=== PATIENT | female | born 1945 ===

== ENCOUNTER → 2021-02-18 13:09 | Outpatient (CLI) | payer OTHER ==
[~2021-02-18 13:09] MED LIST: COZAAR100 MG; NEXIUM10 MG; VERAPAMIL ER180 MG; VYTORIN 10-20 M1 TAB
== END | disposition home or self-care (01) ==
LOC: NUCLEAR 02-15 14:30
DX: M81.0 Age-related osteoporosis without current pathological fracture (principal)

== ENCOUNTER 2021-03-15 08:00 | Outpatient (CLI) | payer OTHER | END 2021-03-15 08:30 | disposition home or self-care (01) | LOC: PPH VACUNA 08:00 | DX: Z23 Encounter for immunization (principal) ==

== ENCOUNTER 2021-09-19 07:49 | Outpatient (CLI) | payer OTHER | END 2021-09-19 07:50 | disposition home or self-care (01) | LOC: MAMO-SONO 07:49 | DX: Z12.31 Encounter for screening mammogram for malignant neoplasm of breast (principal) ==

== ENCOUNTER 2021-10-10 07:25 | Outpatient (CLI) | payer OTHER | END 2021-10-10 07:31 | disposition home or self-care (01) | LOC: SONOGRAMA 07:25 | PROVIDERS: ATTEND Internal Medicine | DX: N60.01 Solitary cyst of right breast (principal); N60.02 Solitary cyst of left breast ==

== ENCOUNTER 2022-02-03 12:59 | Outpatient (CLI) | payer OTHER | END 2022-02-03 13:03 | disposition home or self-care (01) | LOC: SONOGRAMA 12:59 | PROVIDERS: ATTEND Obstetrics & Gynecology Gynecology | DX: N95.0 Postmenopausal bleeding (principal) ==

== ENCOUNTER 2022-02-24 10:14 | Outpatient (CLI) | payer OTHER | END 2022-02-24 10:28 | disposition home or self-care (01) | LOC: SONOGRAMA 10:14 | PROVIDERS: ATTEND Obstetrics & Gynecology Gynecology | DX: N60.11 Diffuse cystic mastopathy of right breast (principal); N60.12 Diffuse cystic mastopathy of left breast ==